=== PATIENT | male | born 1965 | race African-American/Black ===

== ENCOUNTER 2023-11-18 16:12 | Emergency (ER) | payer BC, OTHER ==
[~2023-11-18] VITALS: Ht 182.9 cm; Wt 108.9 kg
[2023-11-18 16:40] VITALS: BP 111/77; PULSE 78; RESP 19; TEMP 96.8; O2SAT 99
[2023-11-18] MEDS ORDERED: ACET-8905 PO (20:41)
[2023-11-18] MEDS ORDERED: NAPR-1704 PO (20:41)
[2023-11-18 20:48] VITALS: BP 111/77; PULSE 78; RESP 19; TEMP 96.8; O2SAT 99
== END 2023-11-18 20:47 | disposition home or self-care (01) ==
LOC: MED 16:12
DX: M51.36 Other intervertebral disc degeneration, lumbar region (principal); M48.07 Spinal stenosis, lumbosacral region; R32 Unspecified urinary incontinence; Z98.890 Other specified postprocedural states; Z79.899 Other long term (current) drug therapy; Z79.1 Long term (current) use of non-steroidal anti-inflammatories (NSAID)
CPT/HCPCS: 72131; 99284